=== PATIENT | male | born 1945 | race Caucasian/White ===

== ENCOUNTER → 2018-03-02 | Outpatient (CLI) | payer MEDICARE, OTHER ==
[2018-03-02 09:10] LABS: HCT 50.7 % (39.0-53.0); HGB 17.1 gm/dL (13.0-17.5); MCH 30.5 pg (25.0-35.0); MCHC 33.7 g/dL (31.0-37.0); MCV 90.7 fL (80.0-100.0); Mean Platelet Volume 7.8; Platelet Count 213 k/uL (150-450); RDW 13.6 % (11.5-15.5); WBC 5.9 k/uL (3.8-10.6)
[2018-03-02 09:22] LABS: Partial Thromboplastin Time 26.8 sec (22.0-30.0); Prothrombin Time 9.7 sec (9.0-12.0)
[2018-03-02 09:26] LABS: Albumin 3.7 g/dL (3.5-5.0); Calcium 9.4 mg/dL (8.4-10.2); Potassium 4.8 mmol/L (3.5-5.1); Total Bilirubin 0.6 mg/dL (0.2-1.3); Total Protein 6.4 g/dL (6.3-8.2)
[2018-03-02 10:00] LABS: Appearance,Urine Clear (Clear); Bilirubin,Urine Negative (Negative); Blood,Urine Negative (Negative); Color,Urine Yellow; Glucose,Urine (UA) Negative (Negative); Ketones,Urine Negative (Negative); Leukocyte Esterase,Urine Negative (Negative); Nitrite,Urine Negative (Negative); PH, Urine 5.5 (5.0-8.0); Protein,Urine Negative (Negative); Specific Gravity,Urine 1.023 (1.001-1.035); Urobilinogen,Urine <2.0 mg/dL (<2.0)
== END | disposition home or self-care (01) ==
LOC: LABPAT 07:51
PROVIDERS: ATTEND Orthopaedic Surgery
DX: Z01.812 Encounter for preprocedural laboratory examination (principal); Z51.81 Encounter for therapeutic drug level monitoring; Z79.01 Long term (current) use of anticoagulants
CPT/HCPCS: 36415; 80053; 81003; 85027; 85610; 85730; 87070

== ENCOUNTER 2018-03-23 12:46 | Inpatient (IN) | payer MEDICARE, OTHER ==
[2018-03-11 13:41] VITALS: BMI 33.2
[~2018-03-23 12:46] MED LIST: ACETAMINOPHEN TAB 500 MG TAB PO ONE; DEXAMETHASONE SOD PHOSPHATE 10 MG/ML 1 ML VIAL IV ONE; HYDROmorphone 0.5 MG/0.5 ML SYRINGE IVP PRN; LACTATED RINGERS 1,000 ML IV SCH; MELOXICAM 7.5 MG TAB PO ONE; MIDAZOLAM 2 MG/2 ML VIAL IV PRN; ONDANSETRON 4 MG/2 ML VIAL IVP ONE; TRANEXAMIC ACID 1,000 MG in SODIUM CHLORIDE 0.9% 50 ML IVPB ONE; ceFAZolin IN SWFI 2 GM/20 ML SYRINGE IVP ONE
[2018-03-23] MEDS ORDERED: LIDOCAINE 1% 20 ML VIAL (10MG/ML) FOR IV START INTRADERMA ONE (13:13)
[2018-03-23] MEDS ORDERED: fentaNYL (PF) 50 MCG/ML 2 ML AMP ONE ×2 (13:26→14:49)
[2018-03-23] MEDS ORDERED: fentaNYL (PF) 50 MCG/ML 2 ML AMP IV ONE (13:53)
--- NOTE | 2018-03-23 14:26 | P.ONQ ---
Anesthesiology Proc Note - PNB - Peripheral Nerve Block Performed Left Interscalene Single Time Out Performed: Yes Procedure Start Time: 13:53 Indication: Acute Post-Operative Pain, Analgesia Sedation Type: Sedate with meaningful contact maintained Preparation: Sterile Prep Position: Supine Catheter: None Needle Types: Other (see comment) (Richie) Needle Size: 50mm (2") Needle Gauge: 21 Technique: Ultrasound Injectate: 0.5% Ropivacaine (see comment for volume) (30 cc) Blood Aspirated: No Pain Paresthesia on Injection Noted: No Resistance on Injection: Normal Events: Uneventful and Well Tolerated
[2018-03-23] MEDS ORDERED: GLYCOPYRROLATE 0.2 MG/ML 2 ML VIAL ONE (14:49)
[2018-03-23] MEDS ORDERED: SUCCINYLCHOLINE CHLORIDE 100 MG/5 ML SYR IV ONE (14:49)
[2018-03-23] MEDS ORDERED: SODIUM CHLORIDE 0.9% 100 ML BAG ONE (14:49)
[2018-03-23] MEDS ORDERED: ROCURONIUM BROMIDE 10 MG/ML 10 ML VIAL IV ONE (14:49)
[2018-03-23] MEDS ORDERED: MIDAZOLAM 2 MG/2 ML VIAL ONE (14:49)
[2018-03-23] MEDS ORDERED: LIDOCAINE 1% INJ 10MG/ML (20 ML MDV) ONE (14:49)
[2018-03-23] MEDS ORDERED: ROPIVACAINE 5 MG/ML 30 ML VIAL ONE (14:49)
[2018-03-23] MEDS ORDERED: TRANEXAMIC ACID 1,000 MG/10 ML VIAL ONE (14:49)
[2018-03-23] MEDS ORDERED: PROPOFOL 10 MG/ML 20 ML VIAL IV ONE (14:49)
[2018-03-23] MEDS ORDERED: NEOSTIGMINE 1 MG/ML 10 ML VIAL ONE (14:49)
[2018-03-23] MEDS ORDERED: PHENYLEPHRINE-0.9% NACL SYG 1 MG/10 ML SYRINGE ONE (14:49)
[2018-03-23] MEDS ORDERED: ceFAZolin 1,000 MG in SODIUM CHLORIDE 0.9% 1,000 ML IRRIGATION ONE (15:24)
[2018-03-23] MEDS ORDERED: LACTATED RINGERS 1,000 ML IV ONE (16:27)
--- NOTE | 2018-03-23 16:45 | P.OP ---
Date of Procedure: 03/23/18 Preoperative Diagnosis: Osteoarthritis left shoulder Postoperative Diagnosis: Osteoarthritis left shoulder Procedure(s) Performed: Left total shoulder arthroplasty Implants: Biomet comprehensive shoulder system, mini humeral stem, 15 mm porous-coated. Biomet comprehensive modular head, variable offset, 50 mm x 24 mm, 52 mm Biomet comprehensive standard taper adapter Biomet comprehensive hybrid glenoid base, medium, 4 mm Biomet comprehensive porous titanium glenoid post The stem was press-fit, the glenoid was cemented using tobramycin bone cement Articulation is metal on polyethylene. Anesthesia: JUWAN Surgeon: Lucas Jerome Electromatic Typist #1: Renea Dent Estimated Blood Loss (ml): 100 Pathology: none sent Condition: stable Disposition: PACU Indications for Procedure: This is a 72-year-old gentleman that is seen by me for osteoarthritis of his left shoulder. He's had a prior arthroscopy which is failed to alleviate his symptoms, he wishes to proceed with a hemiarthroplasty, possible total shoulder arthroplasty. Informed consent was obtained. Operative Findings: The operative findings are consistent with osteoarthritis of the right shoulder. Description of Procedure: The patient was seen in the preoperative area, consent was reviewed, and operative site was marked with a skin marker. The patient was given an interscalene block for postoperative pain control by the anesthesia department. Patient was then brought to the operating room and given preoperative antibiotics intravenously. Patient was also given 1 g of Tranexamic acid intravenously. A general anesthetic was administered by the anesthesia department. The patient was then placed in a beachchair position with the bony prominences well-padded and the head secured. The shoulder was then prepped and draped in the usual sterile fashion. A universal timeout was then performed , which confirmed the patient's name, surgical site, ALLERGIES, and consent. A standard deltopectoral approach was performed. The skin and subcutaneous tissue was sharply dissected down to the deltoid fascia. The cephalic vein was then identified and retracted medially. The deltopectoral interval was then utilized to expose the subscapularis tendon. A retractor was then placed under the coracobrachialis tendon retracted medially, and the deltoid. The axillary nerve is palpated and protected throughout the procedure. The subscapularis tendon was then released and retracted medially. The humeral head was then exposed easily. After the humeral head was exposed, osteophytes were removed with a Ronguer. Next the humeral stem was prepared. A starter reamer was then placed through the humeral head along the axis of the humeral shaft just lateral to the articular surface and just medial to the rotator cuff attachment. Sequential reaming was performed to the appropriate size reamer was inserted to the # between the 3 and 4 on the reamer. Next the intramedullary resection guide was placed on the reamer shaft. It was placed to the appropriate resection depth and angle of 30 of retroversion. Resection guide block was then secured with Steinmann pins. The proximal humerus was then resected. The block was then removed and the humerus was then broached sequentially to the same size as the reamer. After the broaches fully seated, the broach handle was removed. Next, the glenoid was exposed. Significant wear of the glenoid. Using the appropriate guide, a guidewire was placed into the center of the glenoid. The appropriate reamer was then used to ream the glenoid to a bed of bleeding bone. Next the central hole was drilled and the 3 periphery plugs were drilled. The glenoid trial was then placed and found to have a secure fit. The glenoid trial was then removed. The final glenoid component was then preassembled and cemented into the glenoid. The cement was allowed to harden before any other part of the surgery was performed. Next a trial humeral head was placed in the shoulder was reduced. Shoulder was taken through a full range of motion and found to be stable. The shoulder was then gently dislocated, and the trial humerus and humeral head were removed. The final humeral stem was impacted in the final humeral head was impacted as well. Shoulder was then relocated. Again the shoulder was taken through a range of motion and found to have no instability. Shoulder was then irrigated with pulsatile lavage. The shoulder was then irrigated with Irrisept solution. A second dose of 1 g of Tranexamic acid was given. The subscapularis was then repaired with #1 Vicryl. The deltopectoral interval was then closed with #1 Vicryl as well. The subcutaneous tissues were closed with 2-0 Vicryl then Dermabond was placed on the skin. A sterile dressing was then applied, the patient was transported to the recovery room in an arm sling in stable condition. The journeyman operator assistant ABEBA Smith was required due the complexity of surgery and the need for a skilled administrative support assistant.
[2018-03-23] MEDS ORDERED: HYDROmorphone 1 MG/ML 1 ML SYRINGE IVP PRN ×3 (16:56)
[2018-03-23] MEDS ORDERED: SENNOSIDES-DOCUSATE SODIUM 1 EACH TAB PO PRN (16:56)
[2018-03-23] MEDS ORDERED: ONDANSETRON 4 MG/2 ML VIAL IVP PRN (16:56)
[2018-03-23] MEDS ORDERED: HYDROcodone/APAP 5-325MG 1 EACH TAB PO PRN ×2 (16:56)
--- NOTE | 2018-03-23 17:21 | XR ---
EXAMINATION TYPE: XR shoulder limited LT DATE OF EXAM: 03/23/2018 CLINICAL HISTORY: Left shoulder replacement TECHNIQUE: Single frontal view of the left shoulder is obtained immediately postoperatively COMPARISON: None. FINDINGS: Metallic prosthesis from total shoulder arthroplasty is satisfactory in position. There is air from recent surgery noted in surrounding soft tissue. IMPRESSION: Metallic prosthesis satisfactory in position.
[2018-03-23] MEDS ORDERED: ZOLPIDEM 10 MG TAB PO PRN (17:44)
--- NOTE | 2018-03-23 20:58 | CONS ---
CONSULTATION DATE OF SERVICE: 03/23/2018. REASON FOR CONSULTATION: Medical management requested by Dr. Jerome. CONSULTATION: This is a very pleasant 72-year-old patient of Dr. Carrasquillo who underwent the left total shoulder arthroplasty. Postoperative sitting on the bed. No nausea, vomiting, did tolerate some liquid diet. Chronic stable medical conditions include otherwise, osteoarthritis, insomnia, constipation. Breathing is stable. No chest pain. REVIEW OF SYSTEMS: CONSTITUTIONAL: None. HEENT: None. RESPIRATORY: None. CARDIOVASCULAR: None. GENITOURINARY none. MUSCULOSKELETAL: Arthritic pain in different joints including the hands. DERMATOLOGICAL, HEMATOLOGIC, LYMPHATIC: None. PSYCHIATRY: Insomnia. NEUROLOGICAL none. PAST MEDICAL HISTORY: Of osteoarthritis, insomnia, constipation. PAST SURGICAL HISTORY: Back surgery, hernia repair, bilateral knee replaced, bilateral hip replacement, right shoulder surgery, left shoulder scope, cervical fusion x2, lower lumbar fusion, bilateral hand surgery. SOCIAL HISTORY: Patient smoked 2 packs a day for over 55 years. Alcohol occasionally. Retired. FAMILY HISTORY: Cancer type unknown. HOME MEDICATIONS: 1. Ambien 10 mg q.h.s. p.r.n. 2. Lipitor 20 mg a day. 3. Senokot S 1 tablet p.o. b.i.d. 4. Baxter 5 1-2 tablets q.4 p.r.n. ALLERGIES: None. PHYSICAL EXAMINATION: VITAL SIGNS: Temperature 98.2, pulse 95, respiration 12, blood pressure 120/73, pulse ox 93% on room air. GENERAL APPEARANCE: Well built, BMI 33.2. Sitting up awake. EYES: Pupils equal. Conjunctivae normal. HEENT: External appearance of nose and ears normal. Oral cavity normal. NECK: JVD not raised. Mass not palpable. RESPIRATORY effort normal. LUNGS are clear. CARDIOVASCULAR: 1st and 2nd sounds normal. No edema. ABDOMEN: Soft, nontender. Liver and spleen not palpable. LYMPHATICS: No lymph nodes palpable in the neck and axilla. PSYCHIATRY: Alert and oriented x3. Mood and affect normal. NEUROLOGICAL: Pupils equal. Cranial nerves grossly intact. Power and sensation grossly intact. MUSCULOSKELETAL: Left shoulder in a sling. Sensation left hand is present. INVESTIGATIONS: Blood work from March 02, 2018, white count 5.9, hemoglobin 17, potassium 4.8, BUN and creatinine is normal. UA negative. ASSESSMENT: 1. Left total shoulder arthroplasty. 2. Primary osteoarthritis. 3. Chronic insomnia idiopathic. 4. Chronic constipation, idiopathic. 5. Chronic nicotine dependence. The patient is a chronic cigarette smoker. 6. Obesity, BMI 33.2. PLAN: The patient's left arm in a sling. Pain medications in place. Getting IV fluids. Also getting aspirin for DVT prophylaxis. The patient is given a nicotine patch. Care was discussed with the patient. Questions were answered. Thank you Dr. Jerome. Copy to Dr. Carrasquillo. MMLAVINIAL / SYEDAN: [id number] /
[2018-03-23] MEDS ORDERED: NICOTINE 21MG/24HR PATCH TRANSDERM SCH (21:00)
[2018-03-23] MEDS: LACTATED RINGERS 1,000 ML IV SCH (21:34)
[2018-03-23] MEDS: ASPIRIN 325 MG TAB PO SCH (21:34)
[2018-03-23] MEDS: ceFAZolin IN SWFI 2 GM/20 ML SYRINGE IVP SCH (23:07)
[2018-03-24] MEDS: LACTATED RINGERS 1,000 ML IV SCH ×2 (04:19→14:27)
[2018-03-24] MEDS: ceFAZolin IN SWFI 2 GM/20 ML SYRINGE IVP SCH (08:41)
[2018-03-24] MEDS: ASPIRIN 325 MG TAB PO SCH (08:42)
[2018-03-24] MEDS ORDERED: ATORVASTATIN 20 MG TAB PO SCH (09:00)
--- NOTE | 2018-03-24 09:15 | P.DS ---
Providers Date of admission: 03/23/18 12:46 Expected date of discharge: 03/24/18 Attending physician: Lucas Jerome Consults: 03/23/18 16:56 Consult Physician Routine Consulting Provider: Cleve Carrasquillo Consult Reason/Comments: medical management Do you want consulting provider notified?: Yes 03/23/18 17:32 Consult Physician Routine Consulting Provider: Benjamin Mendoza Consult Reason/Comments: medical management Do you want consulting provider notified?: Yes Primary care physician: Cleve Carrasquillo - Discharge Diagnosis(es) (1) Status post total shoulder arthroplasty Current Visit: Yes Status: Acute (2) Osteoarthritis of left shoulder Current Visit: Yes Status: Acute Hospital Course: This is a 72-year-old male with known history of degenerative arthritis of the left shoulder. The patient presents for evaluation. After discussion and consideration patient elects to proceed with left total shoulder arthroplasty. The patient is seen preoperatively by Dr. Jerome and medically cleared for surgery by their primary care physician. Patient is admitted to [facility] on 03/23/2018 for left total shoulder arthroplasty. The procedures performed without complication or sequelae. The patient is doing well postoperatively. Labs and vital signs are stable on day of discharge. On day of discharge patient's shoulder incision is healing well. There is minimal erythema. There is no drainage noted at this time. There is minimal soft tissue swelling. Patient has full wrist and hand range of motion without difficulty or pain. Neurovascular status to the left upper extremity is intact. Patient is discharged home in good condition. Please see med rec for accurate list of home medications. Plan - Discharge Summary Discharge Rx Participant: No New Discharge Prescriptions: New Aspirin 325 mg PO BID #30 tab HYDROcodone/APAP 5-325MG [[place] 5-325] 1 - 2 each PO Q4-6H PRN #50 tab PRN Reason: Pain Sennosides-Docusate Sodium [Senokot-S] 1 tab PO BID #60 tablet No Action Zolpidem [Ambien] 10 mg PO HS PRN PRN Reason: Insomnia Atorvastatin [Lipitor] 20 mg PO DAILY Discharge Medication List Zolpidem [Ambien] 10 mg PO HS PRN 10/28/13 [History] Aspirin 325 mg PO BID #30 tab 03/23/18 [Rx] Atorvastatin [Lipitor] 20 mg PO DAILY 03/23/18 [History] HYDROcodone/APAP 5-325MG [[place] 5-325] 1 - 2 each PO Q4-6H PRN #50 tab 03/23/18 [Rx] Sennosides-Docusate Sodium [Senokot-S] 1 tab PO BID #60 tablet 03/23/18 [Rx] Follow up Appointment(s)/Referral(s): Lucas Jerome DO [Doctor of Osteopathic Medicine] - 10 Days Activity/Diet/Wound Care/Special Instructions: Leave dressing intact for 10 days. Please take medications as prescribed. No physical therapy. No heavy lifting with left upper extremity. Maintain arm sling. Please follow-up with [facility] in 10 days. Please call with any questions or concerns, . Discharge Disposition: HOME SELF-CARE
[2018-03-24] MEDS ORDERED: TAMSULOSIN 0.4 MG CAP.ER.24H PO STA (14:24)
[2018-03-24 15:47] VITALS: BP 126/69; PULSE 69; RESP 12; TEMP 98.8
--- NOTE | 2018-03-24 15:56 | PN ---
PROGRESS NOTE DATE OF SERVICE: 03/24/2018 PRESENTING COMPLAINT: Left shoulder arthroplasty. INTERVAL HISTORY: Patient is status post left shoulder arthroplasty. Pain is controlled. No hand symptoms. Tolerating a diet. No chest pain or shortness of breath. No nausea or vomiting. Has been up and about. REVIEW OF SYSTEMS: Done for constitutional, cardiovascular, GI, pulmonary; relevant findings as above. CURRENT MEDICATIONS: Reviewed. PHYSICAL EXAMINATION: Temperature 98.5, pulse 65, respiration 16, blood pressure 126/75, pulse ox 95% on room air. GENERAL APPEARANCE: Sitting up, comfortable. EYES: Pupils equal. Conjunctivae normal. HEENT: External appearance of nose and ears normal. Oral cavity normal. NECK: JVD not raised. Mass not palpable. RESPIRATORY: Effort normal. Lungs are clear. CARDIOVASCULAR: First and second sounds normal. No edema. ABDOMEN: Soft, non-tender. Liver and spleen not palpable. PSYCHIATRY: Alert and oriented x3. Mood and affect normal. MUSCULOSKELETAL: Left shoulder in a sling. Left hand with good movements. INVESTIGATIONS: No blood work done today. ASSESSMENT: 1. Left total shoulder arthroplasty. 2. Primary osteoarthritis. 3. Chronic insomnia, idiopathic. 4. Chronic constipation, idiopathic. 5. Chronic nicotine dependence. Patient is an active cigarette smoker. 6. Obesity; body mass index 33.2. PLAN: Patient is stable. If discharged, should follow up with family doctor. ADDENDUM: Later I was called that the patient was having urinary retention. I have ordered Flomax 0.4 mg. The patient had a bladder scan; about 500 mL of urine was there. Straight catheter revealed over 400 mL of urine. Flomax will be given; and after a few hours, if patient does not void, patient will have to go home with a Bess catheter and follow up with Urology in a week as an outpatient. MMODL / IJN: [id number] /
--- NOTE | 2018-03-25 14:20 | CDI ---
Last Revision, May 2017 Documentation Clarification Form Date: 03/25/18 From: Jennifer Orlando Leigha Estrada, Burrito Maker Hours-8:30 am & 5 pm Alanis Admit Date: 03/23/2018 12:46:00 PM Patient Name: Bibiana Haynes Visit Number: [id number] Discharge Date: 03/24/18 ATTENTION: The Clinical Documentation Specialists (CDI) and [facility] Coding Staff appreciate your assistance in clarifying documentation. Please respond to the clarification below the line at the bottom and electronically sign. The CDI & [facility] Coding staff will review the response and follow-up if needed. Please note: Queries are made part of the Legal Health Record. If you have any questions, please contact the author of this message via ITS. Benjamin Contreras MD Urinary retention is documented in the 03/24 progress note. Procedure performed: left shoulder arthroplasty Bladder scan showed about 500 ml of urine. Straight cath revealed over 400 ml of urine. Flomax given with instructions if patient does not void, patient will go home with Bess. No Bess placed at the time of discharge. In order to accurately reflect this patients severity of illness, please clarify if the urinary retention is: A post op complication that is: An expected post-surgical condition; An unexpected post-surgical condition related to surgical care; OR Not related to the procedure Other, please specify Unable to determine __urine retention is not related to the procedure MTDD
== END 2018-03-24 17:15 | disposition home or self-care (01) | DRG 483 ==
LOC: 2ORMAIN 12:46 → 3SUR 16:42
PROVIDERS: ADMIT Orthopaedic Surgery; ATTEND Orthopaedic Surgery
PROC: 0RRK0JZ Replacement of Left Shoulder Joint with Synthetic Substitute, Open Approach (ICD-10-PCS; principal; 2018-03-23 14:50)
DX: M19.012 Primary osteoarthritis, left shoulder (principal); J43.9 Emphysema, unspecified; K59.04 Chronic idiopathic constipation; R33.9 Retention of urine, unspecified; E78.5 Hyperlipidemia, unspecified; H91.90 Unspecified hearing loss, unspecified ear; F51.04 Psychophysiologic insomnia; F17.210 Nicotine dependence, cigarettes, uncomplicated; E66.9 Obesity, unspecified; Z68.33 Body mass index [BMI] 33.0-33.9, adult; Z96.643 Presence of artificial hip joint, bilateral; Z96.653 Presence of artificial knee joint, bilateral; Z98.1 Arthrodesis status; Z91.048 Other nonmedicinal substance allergy status; Z79.899 Other long term (current) drug therapy
CPT/HCPCS: 64415; 88300

== ENCOUNTER → 2018-09-21 | Outpatient (CLI) | payer MEDICARE, OTHER ==
--- NOTE | 2018-09-21 10:13 | CT ---
EXAMINATION TYPE: CT angio thor/abd pel aorta DATE OF EXAM: 09/21/2018 COMPARISON: None HISTORY: Abdominal aortic aneurysm, without rupture CT DLP: 1638.8 mGycm. Automated Exposure Control for Dose Reduction was Utilized. CONTRAST: CT scan of the thorax, abdomen and pelvis is performed without and with IV Contrast, patient injected with 80 mL of Isovue 370. FINDINGS: LUNGS: The lungs are remarkable for some nodular densities at the left lung base, axial image 35, 27, and also within the left upper lobe on axial image 23 lesions may be postinflammatory, follow-up is recommended however. The tracheobronchial tree is patent. MEDIASTINUM: There are no greater than 1 cm hilar or mediastinal lymph nodes. No pericardial effusi on is seen. Aorta: Precontrast the transverse dimension of the ascending aorta is approximately 4.7 cm, partially 4.3 cm postcontrast measurement, proximal descending aorta measures approximately 2.6 cm, atheromato us changes are present within the thoracic aorta. At the level of the hiatus the aorta measures appro ximately 2.4 cm. Infrarenal abdominal aortic measurement is approximately 3.7 cm. Common iliac, proxi mal internal and external iliac arteries are patent. Renal arteries, superior mesenteric artery, shimon ac axis are patent. There are 3 super aortic vessels. LIVER/GB: Cystic focus of the left lobe of the liver measures 2.4 cm. PANCREAS: No significant abnormality is seen. SPLEEN: No significant abnormality is seen. ADRENALS: No significant abnormality is seen. KIDNEYS: Exophytic cystic focus at the posterior aspect of the upper pole the left kidney measures 2. 1 cm BOWEL: Diverticular changes associated with the colon GENITAL ORGANS: No gross abnormality seen. LYMPH NODES: No greater than 1cm abdominal or pelvic lymph nodes are appreciated. OSSEOUS STRUCTURES: Postop changes are noted to the lumbar spine. Degenerative disc changes are prese nt, there is a spinal curvature. OTHER: No significant additional abnormality is seen. IMPRESSION: Aneurysmal change involving the aorta as described, follow-up is recommended. Lesions wit hin the lungs may be postinflammatory, follow-up.
== END | disposition home or self-care (01) ==
LOC: RADCTMAIN 07:01
PROVIDERS: ATTEND Internal Medicine Clinical Cardiac Electrophysiology
DX: I71.4 Abdominal aortic aneurysm, without rupture (principal)
CPT/HCPCS: 71275; 74174; Q9967

== ENCOUNTER → 2019-04-07 | Outpatient (CLI) | payer MEDICARE, OTHER ==
--- NOTE | 2019-04-07 13:15 | CT ---
EXAMINATION TYPE: CT ChestAbdPelvis w con DATE OF EXAM: 04/07/2019 COMPARISON: CT September 21, 2018 HISTORY: Lung Nodules, Aortic Aneurysm without rupture CT DLP: 2509.3 mGycm. Automated Exposure Control for Dose Reduction was Utilized. CONTRAST: CT scan of the thorax, abdomen and pelvis is performed with oral and with IV Contrast, patient inject ed with 100 mL of Isovue 300. FINDINGS: LUNGS: Linear scarring and/or atelectasis in the lingula is present. Stable 6 x 4 mm left mid lung an terior nodule axial image 27. Stable smaller nodules left lower lobe axial image 31 and tiny posterio r left basilar nodule axial image 40. Improved aeration nodular opacity lateral to this on same image . No suspicious new nodules or masses. No pleural effusion or pneumothorax bilaterally. MEDIASTINUM: There are no greater than 1 cm hilar or mediastinal lymph nodes. No cardiomegaly or pe ricardial effusion is seen. Focal moderate eccentric hypodense plaque aortic arch axial image 29 is stable. Ascending aorta measures up to 4.15 cm axial image 30. No progression from prior. Moderate pl aque throughout the aorta is noted OTHER: No additional significant abnormality is seen. LIVER/GB: Roughly 1 cm thin-walled cyst left hepatic dome axial image 48 redemonstrated. PANCREAS: No significant abnormality is seen. SPLEEN: No significant abnormality is seen. ADRENALS: No significant abnormality is seen. KIDNEYS: There is 1.8 cm partially exophytic simple appearing cyst posterior laterally left kidney ax ial image 63 redemonstrated. BOWEL: Diverticula in the redundant sigmoid colon. No acute diverticulitis. Oral contrast reaches rec robert. No suspicious small or large bowel dilatation. Poor distention of stomach makes evaluation subop timal. GENITAL ORGANS: Suboptimal evaluation of prostate due to streak artifact from hip arthroplasty. LYMPH NODES: No greater than 1cm abdominal or pelvic lymph nodes are appreciated. OSSEOUS STRUCTURES: Metallic hardware from bilateral hip arthroplasty causes streak artifact limiting evaluation of pelvic structures. Postsurgical changes lower lumbar spine with some residual spinal c anal stenosis superior L4 level axial image 87. Persistent facet arthropathy lower lumbar spine. OTHER: AAA infrarenal abdominal aorta up to 3.4 cm transversely axial image 84. IMPRESSION: Stable thoracic and abdominal aortic aneurysm. Stable scattered small left lung nodules. No new nodules are evident.
== END | disposition home or self-care (01) ==
LOC: RADCTMAIN 08:22
PROVIDERS: ATTEND Family Medicine
DX: I71.4 Abdominal aortic aneurysm, without rupture (principal); R91.1 Solitary pulmonary nodule; R91.8 Other nonspecific abnormal finding of lung field
CPT/HCPCS: 71260; 74177; Q9967 ×2

== ENCOUNTER → 2021-10-06 | Outpatient (CLI) | payer MEDICARE, OTHER ==
[2021-10-06 16:37] LABS: Basophils # (A) 0.06 X 10*3/uL (0.00-0.10); Basophils % (A) 1.1 %; Eosinophils # (A) 0.12 X 10*3/uL (0.04-0.35); Eosinophils % (A) 2.2 %; HCT 50.2 % (39.6-50.0); HGB 16.3 g/dL (13.0-17.0); Immature Grans, Automated 0.7 %; Lymphocytes # (A) 1.27 X 10*3/uL (0.90-5.00); Lymphocytes % (A) 23.3 %; MCH 29.7 pg (27.0-32.0); MCHC 32.5 g/dL (32.0-37.0); MCV 91.6 fL (80.0-97.0); Mean Platelet Volume 11.2 fL (9.5-12.2); Monocytes % (A) 9.2 %; NRBC Per 100 WBC 0 /100 WBCS (0.0-0.0); Neutrophils # (A) 3.45 X 10*3/uL (1.80-7.70); Neutrophils % (A) 63.5 %; Platelet Count 232 X 10*3/uL (140-440); RBC 5.48 X 10*6/uL (4.40-5.60); RDW 14.1 % (11.5-14.5); WBC 5.44 X 10*3/uL (4.50-10.00)
[2021-10-06 16:45] LABS: ALT 22 U/L (10-49); AST 18 U/L (14-35); African American GFR (CKD) 83.9 (60.0-200.0); Albumin 4.3 g/dL (3.8-4.9); Albumin/Globulin Ratio 1.87 (1.60-3.17); Alkaline Phosphatase 86 U/L (41-126); BUN/Creat Ratio 16.14 Ratio (12.00-20.00); Blood Urea Nitrogen 16.3 mg/dL (9.0-27.0); C Reactive Protein <0.30 mg/dL (0.00-0.80); Calcium 9.3 mg/dL (8.7-10.3); Carbon Dioxide 33.7 mmol/L (20.0-27.5); Chloride 108 mmol/L (96-109); Chol/HDL Ratio 6.58 Ratio; Creatine Kinase 96 U/L (35-257); Globulin 2.3 g/dL (1.6-3.3); Glucose 119 mg/dL (70-110); LDL Cholesterol,Calculated 139.9 mg/dL (0.0-131.0); Non-African American GFR(CKD) 72.4 (60.0-200.0); Potassium 4.8 mmol/L (3.5-5.5); Sodium 141 mmol/L (135-145); Total Protein 6.6 g/dL (6.2-8.2)
== END | disposition home or self-care (01) ==
LOC: LABWHC1 10:28
PROVIDERS: ATTEND Internal Medicine
DX: N40.0 Benign prostatic hyperplasia without lower urinary tract symptoms (principal); I12.9 Hypertensive chronic kidney disease with stage 1 through stage 4 chronic kidney disease, or unspecified chronic kidney disease; E87.8 Other disorders of electrolyte and fluid balance, not elsewhere classified; E78.5 Hyperlipidemia, unspecified; E66.9 Obesity, unspecified; N18.30 Chronic kidney disease, stage 3 unspecified
CPT/HCPCS: 36415; 80053; 80061; 82550; 85025; 86140

== ENCOUNTER → 2024-06-14 | Outpatient (CLI) | payer MEDICARE, OTHER ==
--- NOTE | 2024-06-14 11:08 | US ---
EXAMINATION TYPE: US duplex aorta DATE OF EXAM: 06/14/2024 COMPARISON: CT chest abdomen and pelvis 04/07/2019, CTA thoracoabdominal pelvis aorta 09/21/2018 CLINICAL INDICATION: Male, 78 years old with history of I71.40 ABDOMINAL AORTIC ANEURYSM; AAA TECHNIQUE: Multiple sonographic images of the abdominal aorta are obtained with grayscale and color D oppler imaging. FINDINGS: EXAM MEASUREMENTS: Abdominal Aorta: Proximal: obscured by bowel Mid: 2.2x2.2cm Distal: 4.7x4.0cm Bifurcation: Right Iliac: obscured by bowel Left Iliac: obscured by bowel ALCOHOL AND DR[employer] COUNSELOR NOTES: exam limited by bowel and body habitus infrarenal AAA redemonstrated IMPRESSION: Increase in size of infrarenal fusiform abdominal aortic aneurysm measuring up to 4.7 cm, previously 3.[address] 04/07/2019. [facility], , 06/14/2024 11:06 AM
== END | disposition home or self-care (01) ==
LOC: RADUSWWP 10:02
PROVIDERS: ATTEND Family Medicine
DX: I71.40 Abdominal aortic aneurysm, without rupture, unspecified (principal); Z86.79 Personal history of other diseases of the circulatory system
CPT/HCPCS: 93979